=== PATIENT | female | born 2000 | race Caucasian/White ===

== ENCOUNTER 2021-11-03 11:36 | Emergency (ER) | payer BC ==
[2021-11-03 14:18] LABS: ESTIMATED GFR 125 mL/min (>60)
[2021-11-03 14:52] LABS: CORONAVIRUS COVID-19 NAA NEGATIVE (NEGATIVE)
== END 2021-11-03 15:28 ==
LOC: JP.ED 11:36
DX: Z04.6 Encounter for general psychiatric examination, requested by authority (principal); Z88.8 Allergy status to other drugs, medicaments and biological substances; Z72.0 Tobacco use; Z20.822 Contact with and (suspected) exposure to COVID-19
CPT/HCPCS: 0241U; 36415; 80053; 80305-QW; 80307; 81025; 84443; 85027; 93005; 93010; 99281; 99283-25